=== PATIENT | female | born 1950 ===

== ENCOUNTER 2022-10-08 05:05 | Day surgery (SDC) | payer OTHER ==
[~2022-10-08 05:05] MED LIST: VASOTEC20 M1 PO
== END 2022-10-08 10:35 | disposition home or self-care (01) ==
LOC: CIR.AMB 05:05
PROVIDERS: ATTEND Surgery Surgery of the Hand
DX: D21.12 Benign neoplasm of connective and other soft tissue of left upper limb, including shoulder (principal); Z42.8 Encounter for other plastic and reconstructive surgery following medical procedure or healed injury; Z88.2 Allergy status to sulfonamides; I10 Essential (primary) hypertension; Z20.822 Contact with and (suspected) exposure to COVID-19